=== PATIENT | female | born 1995 | race Caucasian/White ===

== ENCOUNTER → 2021-04-25 07:05 | Outpatient (CLI) | payer OTHER, MEDICAID, SELFPAY ==
--- NOTE | 2021-04-25 | DI.US.S_ITS ---
PROCEDURE: US OB <= 14 WEEKS FETUS INDICATIONS: DATES; SPOTTING OUTSIDE/PRIOR DATING DATA: Last menstrual period (LMP): Unknown. LMP-based estimated date of delivery (SANG): Unknown. First dating scan (date and location): 04/25/2021. Estimated date of delivery (SANG) from first dating scan: 12/13/2021. TECHNIQUE: Real-time scanning was performed of the fetus and maternal pelvic organs, with image documentation. Endovaginal scanning was also performed to better visualize the fetus and maternal ovaries. COMPARISON: None. FINDINGS: Embryo: Single live intrauterine is identified with crown-rump length measuring 9 mm corresponding to 6 weeks 6 days. Heart rate: 123 beats per minute Measurement variability in dating: +/- 4 weeks by LMP, +/- 7 days by mean sac diameter (use before 6 weeks gestation if crown-rump length not able to be measured), +/- 5 days by crown-rump length (up to 8 weeks 6 days gestation), +/- 7 days by crown-rump length (up to 13 weeks 6 days gestation). Maternal organs: Ovaries demonstrate a 1.5 cm presumed left corpus luteal cyst. . IMPRESSION: 1. Single live intrauterine with ultrasound gestational age of 6 weeks 6 days. 2. Recommend followup imaging at 20-22 weeks for dates and anatomy. Dictated by: Raquel Guevara M.D. on 04/25/2021 at 10:03 Approved by: Raquel Guevara M.D. on 04/25/2021 at 10:04
== END ==
PROVIDERS: PCP Family Medicine; Referring Provider Nurse Practitioner Obstetrics & Gynecology; Visit Provider Nurse Practitioner Obstetrics & Gynecology
DX: O26.851 Spotting complicating pregnancy, first trimester (principal); Z3A.01 Less than 8 weeks gestation of pregnancy
CPT/HCPCS: 76801; 76817; 76830

== ENCOUNTER → 2021-07-28 12:08 | Outpatient (CLI) | payer OTHER, MEDICAID, SELFPAY ==
--- NOTE | 2021-07-28 12:10 | DI.US.S_ITS ---
PROCEDURE: US OB >= 14 WEEKS FETUS INDICATIONS: 20 WEEK ANATOMY SCAN OUTSIDE/PRIOR DATING DATA: Last menstrual period (LMP): Unknown LMP-based estimated date of delivery (SANG): Unknown First dating scan (date and location): 04/25/2021 Estimated date of delivery (SANG) from first dating scan: 12/13/2021 TECHNIQUE: Real-time scanning was performed of the fetus, with image documentation and biometric measurements. COMPARISON: [facility], , OB <= 14 WEEKS FETUS, 04/25/2021, 7:24. FINDINGS: General: A single living intrauterine gestation is present. Presentation: Variable to cephalic Placenta: Placental position is posterior, without previa. Amniotic fluid index: 13.4 cm, normal range is 5-24 cm. Single deepest vertical pocket is 4.2 cm. heart rate: 144 beats per minute. Maternal cervical canal: 4.6 cm long. Normal lower limit is 2.5 cm. biometrics: Biparietal diameter: 4.6 cm, 19 weeks, 6 days Head circumference: 16.8 cm, 19 weeks, 3 days Abdominal circumference: 4.4 cm, 19 weeks, 5 days Femur length: 3.2 cm, 20 weeks, 0 days Clinically estimated gestational age: 20 weeks, 2 days Composite gestational age from present scan: 19 weeks, 5 days Estimated weight and percentile: 313 g, 21% Anatomic survey: Neuro: Ventricles are non-dilated at less than 10 mm. Cisterna magna is normal at 3-11 mm. Cerebellum is normal in size and morphology. Right choroid plexus cyst measures 4 mm in size is seen. Nuchal skin fold: Normal at less than 6 mm between 14-21 weeks gestational age. Face: Nose and lips, facial profile are normal. Spine: No evidence for spina bifida. Heart: 4-chambered heart is present, with normal ventricular outflow tracts. Evaluation is slightly suboptimal due to position. Diaphragm: Diaphragm is intact. Stomach: Left-sided stomach is present. Kidneys: No hydronephrosis. Normal is less than 5 mm in 2nd trimester, less than 7 mm in 3rd trimester. Cord: 3-vessel cord has orthotopic insertion. Bladder: Normal in size. Extremities: All 4 extremities identified. IMPRESSION: 1. Single live intrauterine with variable presentation. heart rate is 144 beats per minute. Normal amount of amniotic fluid. Normal growth. Estimated weight is at 21%. 2. cardiac structures and outflow tracts are suboptimally evaluated due to position. 3. 4 mm right choroid plexus cyst is seen, suggest sonographic follow-up. We strive to produce accurate, complete, and clear reports of imaging services. To assist us in improving patient care, this report was composed using standard report templates and voice recognition software. Therefore, it may contain abnormal punctuation, insertions and/or omissions. Occasional wrong-word or sound-alike substitutions may occur. Though we review the report and make efforts to correct it, we do recommend that the report be read carefully in proper context to recognize any text inaccuracies. Dictated by: Rasta Daniels M.D. on 07/28/2021 at 13:47 Approved by: Rasta Daniels M.D. on 07/28/2021 at 13:50
== END ==
PROVIDERS: PCP Family Medicine; Referring Provider Nurse Practitioner Obstetrics & Gynecology; Visit Provider Nurse Practitioner Obstetrics & Gynecology
DX: Z34.92 Encounter for supervision of normal pregnancy, unspecified, second trimester (principal); Z3A.19 19 weeks gestation of pregnancy
CPT/HCPCS: 76811

== ENCOUNTER → 2021-09-14 14:38 | Outpatient (CLI) | payer OTHER, MEDICAID, SELFPAY ==
--- NOTE | 2021-09-14 | DI.US.S_ITS ---
PROCEDURE: US OB LIMITED INDICATIONS: INCOMPLETE ANATOMY SCAN OUTSIDE/PRIOR DATING DATA: Last menstrual period (LMP): Unknown. LMP-based estimated date of delivery (SANG): Not applicable. First dating scan (date and location): April 25, 2021. Estimated date of delivery (SANG) from first dating scan: December 13, 2021. TECHNIQUE: Real-time scanning was performed of the fetus, with image documentation. Endovaginal scanning: Not performed COMPARISON: [facility], OB >= 14 WEEKS FETUS, 07/28/2021, 12:20. FINDINGS: A single living intrauterine gestation is present. Presentation: Oblique, head to the left. Placenta: Placental position is posterior, without previa. Amniotic fluid index: 15.5 cm, normal range is 5-24 cm. Single deepest vertical pocket is 4.7 cm. heart rate: 133 beats per minute. Maternal cervical canal: 4.2 cm long. Normal lower limit is 2.5 cm. Estimated gestational age from initial scan: 27 weeks and 1 day. Other: Visualized cardiac structures and diaphragm appear unremarkable. Normal appearance of the ventricular outflow tracks. Previously seen right choroid plexus cyst is not seen on today's examination. IMPRESSION: Single living intrauterine gestation with estimated gestational age of approximately 27 weeks and 1 day. Visualized cardiac structures and diaphragm appear within normal limits. Previously described right choroid plexus cyst is not visualized on today's study. Dictated by: Augustine Guillaume M.D. on 09/14/2021 at 16:37 Approved by: Augustine Guillaume M.D. on 09/14/2021 at 16:42
== END ==
PROVIDERS: PCP Family Medicine; Referring Provider Nurse Practitioner Obstetrics & Gynecology; Visit Provider Nurse Practitioner Obstetrics & Gynecology
DX: Z36.2 Encounter for other antenatal screening follow-up (principal); Z3A.27 27 weeks gestation of pregnancy
CPT/HCPCS: 76815

== ENCOUNTER → 2021-09-15 08:42 | Outpatient (CLI) | payer OTHER, MEDICAID, SELFPAY ==
[2021-09-15 09:34] LABS: Hematocrit 34.3 % (36-46); Hemoglobin 11.7 g/dL (12.0-16.0); Mean Corpuscular HGB Conc 34.2 % (30-36); Mean Corpuscular Volume 90.7 fL (80-100); Platelet Count 187 X10^3/uL (150-400); Red Blood Cell Count 3.79 X10^6/uL (4.0-5.2); Red Cell Distribution Width 13.4 % (11.6-14.8); White Blood Cell Count 7.6 X10^3/uL (4.5-11.0)
[2021-09-15 10:11] LABS: Glucose Fasting 75 mg/dL (70-100)
[2021-09-15 11:15] LABS: Glucose 1 Hour 144 mg/dL (70-170)
[2021-09-15 11:26] LABS: Glucose Tol Interpretation INTERPRETATION
[2021-09-15 12:57] LABS: Glucose 2 Hour 103 mg/dL (70-140)
== END ==
PROVIDERS: PCP Family Medicine; Referring Provider Nurse Practitioner Obstetrics & Gynecology; Visit Provider Nurse Practitioner Obstetrics & Gynecology
DX: Z34.90 Encounter for supervision of normal pregnancy, unspecified, unspecified trimester (principal); Z3A.26 26 weeks gestation of pregnancy
CPT/HCPCS: 36415; 82951; 82952; 85027

== ENCOUNTER → 2021-11-17 11:31 | Outpatient (ROUT) | payer OTHER, MEDICAID, SELFPAY | PROVIDERS: PCP Family Medicine; Visit Provider Nurse Practitioner Obstetrics & Gynecology | DX: Z36.85 Encounter for antenatal screening for Streptococcus B (principal); Z3A.36 36 weeks gestation of pregnancy | CPT/HCPCS: 87081 ==

== ENCOUNTER 2021-12-03 10:02 | Observation (INO) | payer OTHER, MEDICAID, SELFPAY ==
--- NOTE | 2021-12-03 10:28 | PM.OBTRLD ---
Visit Information Visit Information Date of evaluation: 12/03/21 Primary OB Provider: Linda Meredith On-call OB Provider: Belkis Looney Reason for Evaluation: Yes rupture of membranes Comments/Additional reasons for admission: 26 yo at 38 weeks 4 days by 6 week dating ultrasound here for evaluation of ruptured membranes. Reports two episodes of soaking underwear last night, uncertain if still leaking. + FM, no contractions. Uncomplicated care with CNM. Vital Signs Vital Signs: BP: 110/59. HR 95 bpm, T 36.4C temporal PFS Social History (Updated 12/03/21 @ 10:35 by Linda Meredith CNM) marital status: household members: spouse and children occupational status: employed Review of Systems Review of Systems ROS: Yes All systems reviewed with the patient and are negative except as otherwise documented Exam Presentation: vertex Other: CE deferred Evaluation Evaluation Baseline heart rate: 145 Variability: Moderate (11-25) monitor accelerations: Present Monitor Decelerations: Absent Contraction Frequency (minutes): 0 Category of Tracing: Reactive Non-invasive Membranes Rupture Test: negative Diagnosis, Plan/Disposition Final Diagnosis (1) Suspected problem with amniotic cavity and membrane not found: Status: Acute Plan/Disposition Plan: Discharge to home. Routine precautions. Follow-up in clinic as previously scheduled.
== END 2021-12-03 13:19 | disposition home or self-care (01) ==
PROVIDERS: Admitting Provider Nurse Practitioner Obstetrics & Gynecology; PCP Family Medicine; Referring Provider Nurse Practitioner Obstetrics & Gynecology; Visit Provider Nurse Practitioner Obstetrics & Gynecology
DX: Z03.71 Encounter for suspected problem with amniotic cavity and membrane ruled out (principal); Z3A.38 38 weeks gestation of pregnancy
CPT/HCPCS: 59025; 84112; G0378; G0379

== ENCOUNTER 2021-12-11 03:19 | Inpatient (IN) | payer OTHER, MEDICAID, SELFPAY ==
--- NOTE | 2021-12-11 03:38 | PM.OBHP.1 ---
OB HPI Date/Time Date of admission: 12/11/21 Date Patient Seen: 12/11/21 Time Patient Seen: 03:38 History of Present Condition Chief complaint: LABOR : 3 Para: 1 Estimated Date of Delivery: 12/13/21 Estimated Gestational Age (weeks): 39.5 Narrative: Dawna Zheng is a 26 year old female at 39w5d by 6w6d ultrasound here for labor assessment. Contractions began at 0130, strong and regular by 0230. Regular care with CNM, no complications. Desires epidural. and mother are present and supportive. VS: 123/76, HR 83, T 36.5 C temporal Indications Other reason(s) for admission: Labor History of Present care: good care, initiated at week # (6), number of visits (12) and pounds weight gain (17) Dating criteria: based on 1st trimester US only Ultrasounds: normal 1st trimester US and normal mid trimester US Obstetrical complications: none Medical complications: none Preadmission Labs Blood type: A (+) positive -: Antibody screen: negative, GBS status: negative, HBsAG: negative, HIV: negative and RPR/VDLR: negative -: Chlamydia screen: not detected and Gonorrhea screen: not detected -: Rubella: immune and Varicella: immune HCT: 34.3 HCAB: negative PAP: Normal Narrative: 2 hour GTT: 75/144/103 Prior (ies) History: 02/28/2019: Term NSVB x 1, IOL for oligohydramnios, epidural, 2nd degree lac SAB x 1 Evaluation Evaluation Baseline heart rate: 135 Variability: Moderate (11-25) monitor accelerations: Present Monitor Decelerations: Absent Contraction Frequency (minutes): 2 Uterine Contraction Intensity: Moderate Status: Category l Dilation (cm): 6 Effacement (%): 80 Dilation: >/=5 cm Effacement: >/=80% station: -1 Position of cervix: posterior Consistency: soft Nunn score: 10 PFSH Social History (Updated 12/03/21 @ 10:35 by Linda Meredith CNM) marital status: household members: spouse and children occupational status: employed Smoking Status: Never smoker Meds Home Medications and Allergies Home Medications Medication Instructions Recorded Confirmed Type escitalopram oxalate 5 mg tablet mg 12/11/21 History Allergies Allergy/AdvReac Type Severity Reaction Status Date / Time No Known Drug Allergies Allergy Unverified 12/11/21 03:59 Review of Systems Review of Systems ROS: Yes All systems reviewed with the patient and are negative except as otherwise documented OB Exam Resp Effort & Inspection: normal respiratory effort Auscultation: clear to auscultation bilaterally Cardio Rate: regular rate Rhythm: regular rhythm Heart Sounds: S1 normal and S2 normal Presentation: vertex Objective Labs Result Diagrams: 12/11/21 04:00 Assessment and Plan Assessment and Plan Assessment and Plan narrative: A: Term primipara in active labor Antibiotics not indicated Category 1 FHR P: Admit routine orders Epidural, when requested Reassess in 2-3 hours or sooner PRN
[2021-12-11 04:16] LABS: Add Manual Diff / Slide Review NO; Basophils Absolute Auto 0 /uL (0-100); Basophils Percent Auto 0.5 % (0-2); Eosinophils Absolute Auto 0 /uL (0-450); Eosinophils Percent Auto 0.5 % (2-4); Hematocrit 35.9 % (36-46); Hemoglobin 12.6 g/dL (12.0-16.0); Lymphocytes Absolute Auto 1900 /uL (1100-4500); Lymphocytes Percent Auto 21.1 % (25-40); Mean Corpuscular Hemoglobin 30.5 PG (26-34); Mean Corpuscular Volume 87.3 fL (80-100); Monocytes Absolute Auto 700 /uL (0-900); Monocytes Percent Auto 7.4 % (3-14); Neutrophils Absolute Auto 6400 /uL (1500-7000); Neutrophils Percent Auto 70.5 % (50-75); Platelet Count 151 X10^3/uL (150-400); Red Blood Cell Count 4.12 X10^6/uL (4.0-5.2); Red Cell Distribution Width 13.8 % (11.6-14.8); White Blood Cell Count 9.1 X10^3/uL (4.5-11.0)
[2021-12-11 04:26] VITALS: BP 123/70
[2021-12-11 04:28] LABS: COVID19 -Nasal RAPID Negative (Negative)
[2021-12-11] MEDS: LACTATED RINGERS 1,000 ML 100 ML IV ×2 (04:51)
--- NOTE | 2021-12-11 05:04 | PM.AN.REGBLK ---
Regional Block Pre-procedure Procedure: Continuous Lumbar Epidural for L&D Attending OB provider: Linda Meredith PMH/ROS narrative: term labor, no comlpications. ASA Class: II Labs: Hct 35.9 % (36-46) L 12/11/21 04:00 Plt Count 151 X10^3/uL (150-400) 12/11/21 04:00 Medications: Current Medications Generic Name Dose Route Start Last Admin Trade Name Freq PRN Reason Stop Dose Admin Calcium Carbonate 1,000 mg 12/11/21 03:32 Calcium Carbonate 500 Mg Tab PO Q2HR PRN Dyspepsia Carboprost Tromethamine 250 mcg 12/11/21 03:32 Carboprost 250 Mcg/Ml Ampul IM Q90M PRN Bleeding Diphenhydramine HCl 25 mg 12/11/21 05:03 Diphenhydramine 50 Mg/Ml Vial IV Q10M PRN Pruritis Lactated Ringer's 1,000 mls @ 100 mls/hr 12/11/21 03:45 12/11/21 04:51 Lactated Ringers IV 100 mls/hr CONT LAKHWINDER Administration Oxytocin/Lactated Ringer's 30 unit in 500 mls @ 200 mls/hr 12/11/21 03:32 Oxytocin Premix IV CONT PRN Bleeding Protocol Tranexamic Acid 1,000 mg/ 100 mls @ 200 mls/hr 12/11/21 03:32 Sodium Chloride IV NOW PRN Bleeding Oxytocin/Lactated Ringer's 30 unit in 500 mls @ 1 mls/hr 12/11/21 03:45 Oxytocin Premix IV TITRATE LAKHWINDER Protocol 1 MILLIUNIT/MIN FENT 2MCG/ML BUPIV 0.125% EPI 200 mcg in 100 mls @ 6 mls/hr 12/11/21 05:15 Fentanyl/Bupiv/Ns 2mcg/Ml - 0.125% EPIDURAL CONT LAKHWINDER Methylergonovine Maleate 0.2 mg 12/11/21 03:32 Methylergonovine 0.2 Mg Tablet PO Q6HR PRN Heavy Bleeding Methylergonovine Maleate 0.2 mg 12/11/21 03:32 Methylergonovine 0.2 Mg/Ml Vial IM NOW PRN Bleeding Misoprostol 800 mcg 12/11/21 03:32 Misoprostol 200 Mcg Tablet LA NOW PRN Bleeding Misoprostol 1,000 mcg 12/11/21 03:32 Misoprostol 200 Mcg Tablet LA NOW PRN Bleeding Misoprostol 400 mcg 12/11/21 03:32 Misoprostol 200 Mcg Tablet SL NOW PRN Bleeding Nalbuphine HCl 2.5 mg 12/11/21 05:03 Nalbuphine 20 Mg/Ml Ampul IV Q10M PRN Pruritis Ondansetron HCl 4 mg 12/11/21 03:32 Ondansetron 4 Mg/2 Ml Inj IV Q4HR PRN Nausea And Vomiting Oxytocin 10 unit 12/11/21 03:32 Oxytocin 10 Unit/Ml Vial IM NOW PRN Bleeding Allergies: Allergies Allergy/AdvReac Type Severity Reaction Status Date / Time No Known Drug Allergies Allergy Unverified 12/11/21 03:59 Procedure Insertion date: 12/11/21 Insertion time: 04:40 Prep/Local: betadine x3 and 1% lidocaine Interspace: L3-4 Patient position: sitting Needle: 18 gauge ChemoCentryx (CSE: 27g Pencan through Hustead, clear CSF, 1mL 0.25% bupiv MPF) Loss of resistance with: saline LARISSA at (cm): 4 Catheter placed at SKIN (cm): 9 Catheter in SPACE (cm): 5 Insertion: No CSF, No Blood, No Paresthesia with insertion, No Paresthesia with injection and No Test dose reaction Initial Medications TEST DOSE time: 04:42 TEST DOSE: 1.5% lidocaine with epinephrine 1:200k (mL): 3 BOLUS DOSE time: 04:53 BOLUS DOSE (mL): 5 BOLUS DOSE med: other (infusate) Infusion INFUSION: 0.125% bupivacaine and with fentanyl 2 mcg/mL Initial rate (mL/hr): 6 Subsequent interventions: Post-procedure Anesthesia time START: 04:36 Anesthesia time END: 10:27 Post-procedure Anesthesia Assessment: Yes CV function: HR/BP stable, Yes Resp function: RR/sat/airway adequate, Yes Mental status appropriate and No Anesthesia complications
[2021-12-11] MEDS: FENT 2MCG/ML BUPIV 0.125% EPI 200 MCG/100 ML PLAST..BAG 6 MCG EPIDURAL (08:49)
--- NOTE | 2021-12-11 09:10 | PM.OBPNLAB ---
Date/Time Date Patient Seen: 12/11/21 Time Patient Seen: 09:11 Pain Control Pain control: epidural Comments: Feeling occasional rectal pressure and unsure if leaking fluid. VS: BP 102/57, HR 71, T35.5C temporal Pelvic Exam Dilation (cm): 9 Effacement (%): 90 station: 0 Amniotic membrane status: Leaking (clear) Contractions Monitor mode: External Contraction frequency (min): 3 Contraction duration (min): 1 Contraction pattern: Regular Contraction intensity: Moderate Status status: Category l Heart Rate Baseline: 125 Monitor Accelerations: Present Monitor Decelerations: Absent Monitor Variability: Moderate Assessment and Plan Assessment: active labor Plan: continuous present management Comments: Reassess in 2-3 hours or sooner PRN
--- NOTE | 2021-12-11 11:29 | PM.OBPRVD ---
Labor & Delivery Delivery date: 12/11/21 Intrapartal Events: None Cervical ripening method: none Induction method: none Delivery monitor: external FHT and external uterine Route of delivery: Episiotomy description: None L&D Laceration Description: Superficial (periclitoral, 1st degree) Delivery repair: chromic (3.0) and other Quantitative Blood Loss: 200 Anesthesia Type: Epidural Narrative: Dawna began to feel rectal pressure and urge to push. Good descent with coached pushing efforts. Delivered CAROL and restituted to ROT. No nuchal cord. Shoulders delivered easily without additional manuevers. IV pitocin started for AMTSL. Cord clamped and cut after pulsations ceased. Cord blood collected. Placenta intact with 3 vessel cord, delivered with gentle cord traction, trailing membranes teased out with ringed forceps. Uterus immediately firm. Inspection of perineum and vagina revealed first degree periclitoral laceration, repaired under epidural anesthesia with 3.0 chromic, single suture. QBL 200 ml. Mother and baby skin to skin and stable as I left the room. [place] Baby 1: Infant gender: Female Presentation: vertex Position: Right Occiput Anterior Placenta delivery description: Spontaneous (trailing membranes teased out with ringed forceps) Cord Vessel Description: 3 Vessels score (1 min): 9 score (5 min): 9 weight: 3.099 kg Plan for aftercare: Routine care
[2021-12-11] MEDS: KETOROLAC 30 MG/ML VIAL IV (13:39)
[2021-12-11] MEDS: DERMOPLAST SPRAY 20% 60 ML 1 SPRAY TOP (13:43)
[2021-12-11] MEDS: ESCITALOPRAM 10 MG TABLET 5 MG PO (21:30)
[2021-12-11] MEDS: ACETAMINOPHEN 325 MG TABLET 650 MG PO (21:31)
[2021-12-11] MEDS: IBUPROFEN 600 MG TABLET PO (21:32)
[2021-12-12] MEDS: ACETAMINOPHEN 325 MG TABLET 650 MG PO (06:20)
[2021-12-12] MEDS: IBUPROFEN 600 MG TABLET PO (06:20)
--- NOTE | 2021-12-12 07:39 | PM.OBDS.1 ---
Discharge Providers Provider Date of admission: 12/11/21 03:19 Discharge Date: 12/12/21 Primary care physician: Jessica Robin MD Consults: 12/11/21 03:34 Consult to Anesthesiology Urgent Comment: Consulting Provider: Anesthesiologist Reason for consultation: whe requested Has provider been notified: No 12/12/21 11:26 Consult to Cyber Systems Administrator Routine Comment: Discharge provider: Linda Meredith CNM Summary Hospital Course Date Patient Seen: 12/12/21 Time Patient Seen: 07:40 Diagnoses: O70.0 Hospital Course: PPD1: 26YO s/p NSVB w/ 1st degree periclitoral laceration. Voiding, ambulating and bottle feeding independently. Tolerating a general diet. Pain is well controlled w/ PO medication. Vaginal bleeding is decreasing, no clots. Eager for discharge to home this morning. Peripartum Data Infant Delivery Method: Natural Vaginal Laceration Description: Superficial (1st degree periclitoral) Episiotomy description: None Procedures: O70.0 complications: none [place] 1: Gender: Female Disposition of : home Discharge Diagnosis (1) First degree perineal laceration during delivery: Start Date: 12/11/21 Start Time: 10:57 Status: Acute Status at Discharge Cognitive/behavioral status at discharge: oriented Functional status at discharge: independent ambulation Overall status at discharge: patient is back to baseline Time Spent with Patient Time attestation: Total time spent providing and/or coordinating discharge services: Time spent: Greater than 30 minutes Specific discharge activities: Routine PP orders and precautions Objective Labs Result Diagrams: 12/11/21 04:00 Exam Vital Signs (past 8 hours): BP 111/67mmHg, HR 88bpm, RR 19/min, T 97.4F Temporal Other: Fundus firm @ U-1, lochia scant, minimal perineal edema Discharge Plan Discharge Plan Patient Disposition: Home Discharge orders & Medications Prescriptions: New ibuprofen 600 mg Tablet 600 mg PO Q6HR PRN (Reason: Pain, Mild (1-3)) 14 Days Qty: 60 0RF Continued escitalopram oxalate [Lexapro] 5 mg tablet 5 mg PO DIRECTED 0RF Label Comments: TAKE 1 TABLET BY MOUTH DAILY Follow up/Referrals: Jessica Robin MD [Primary Care Provider] - Linda Meredith CNM [Advanced Court Administrator] - (Follow-up by Telehealth 12/23/21 @ 0983 Follow-up in office 01/20/22 @ 0974) Diet/Activity/Treatments Diet: Regular Activity: pelvic rest x 6 weeks Skin/Wound/Dressing Care Report to your healthcare provider any signs of infection, such as:: chills, fever, increased pain, unusual drainage and unusual redness Visit Report/Discharge Packet Instructions: Depression Stand Alone Forms: Discharge: Care Discharge Data Primary Care Provider: Jessica Robin
[2021-12-12 08:45] VITALS: BP 117/71; PULSE 74; RESP 16; TEMP 36.4
== END 2021-12-12 10:30 | disposition home or self-care (01) | DRG 560 ==
PROVIDERS: Admitting Provider Nurse Practitioner Obstetrics & Gynecology; PCP Family Medicine; Referring Provider Nurse Practitioner Obstetrics & Gynecology; Visit Provider Nurse Practitioner Obstetrics & Gynecology
DX: O70.0 First degree perineal laceration during delivery (principal); Z3A.39 39 weeks gestation of pregnancy; Z37.0 Single live birth; Z20.822 Contact with and (suspected) exposure to COVID-19
CPT/HCPCS: 01967; 36415; 59050; 85025; 86850; 86900; 86901; 87635; C9803; G0379; J1885